=== PATIENT | male | born 1960 | race Caucasian/White ===

== ENCOUNTER → 2020-12-25 14:44 | Outpatient (BNVA) | payer MEDICAID, SELFPAY | PROVIDERS: PCP Family Medicine; Referring Provider Family Medicine; Visit Provider Orthopaedic Surgery | DX: M85.88 Other specified disorders of bone density and structure, other site (principal); M54.9 Dorsalgia, unspecified | CPT/HCPCS: 72110 ==

== ENCOUNTER → 2021-05-01 10:00 | Outpatient (BNVA) | payer MEDICAID, SELFPAY | PROVIDERS: PCP Family Medicine; Visit Provider Orthopaedic Surgery | DX: Z01.818 Encounter for other preprocedural examination (principal); Z20.822 Contact with and (suspected) exposure to COVID-19 | CPT/HCPCS: 87635 ==

== ENCOUNTER 2021-05-06 12:38 | Inpatient (IN) | payer MEDICAID, SELFPAY ==
[2021-05-03 11:07] VITALS: BMI 24.8
--- NOTE | 2021-05-03 11:54 | ANES.PREANE2 ---
Pre-Anesthetic Assessment Pre-Anesthetic Assessment: Height/Weight: Height 1.78 m Weight 78.471 kg Preop Diagnosis: back pain Proposed Procedure: Operation Date: 05/06/21 08:30 Proposed Procedures p Posterior Lumbar Interbody Fusion L4/5 L5/S1 hardware remvoal L2-L4 [id number] M48.062(Not Applicable) - Patrick Sims, DO Familial anesthetic complications: none Social: Social History: Tobacco and No alcohol Exam: Pre-Anes Outpt Exam: alert, oriented x 3, clear to auscultation bilaterally and regular rate & rhythm Airway: Cervical ROM: WNL MP: 3 Dentition: False CV/HEM: CV/HEM: HTN Hepatic: Comments: blood clot in liver over a year ago, got jaundiced, now back gto normal, no blood thinnre GI: GI: GERD and Hiatus hernia Anesthetic Plan: ASA status: 2 Risk of > 500 ml blood loss (7ml/kg in children): No PFSH Anesthesia PFSH: Social History (Updated 12/25/20 @ 15:10 by Vicky Richard LPN) Smoking and tobacco status: current every day smoker Data Anesthesia Cardiac Studies: No Data to Display
[2021-05-03 12:51] LABS: Basophils # 0.1 10^3/uL (0.0-0.1); Basophils % 0.7 %; Eosinophils # 0.2 10^3/uL (0.0-0.8); Hematocrit 49.2 % (42.0-52.0); Hemoglobin 15.7 g/dL (11.7-16.6); Lymphocytes # 2.4 10^3/uL (0.8-4.8); Lymphocytes % 24.3 %; Mean Corpuscular HGB Conc 31.9 g/dL (30.0-36.0); Mean Corpuscular Volume 94.1 fl (80-94); Mean Platelet Volume 11.5 fL (7.4-10.4); Monocytes # 0.9 10^3/uL (0.2-0.9); Monocytes % 9.3 %; Neutrophils # 6.27 10^3/uL (1.8-7.7); Neutrophils % 63.3 %; Nucleated Red Blood Cells % 0 %; Platelet Count 208 10^3/cmm (130-400); Red Blood Count 5.23 10^6/uL (4.1-5.3); Red Cell Distribution Width 14.2 % (12.1-15.1); White Blood Count 9.9 10^3/uL (4.0-10.0)
[2021-05-06] VITALS (20 sets, daily range): BP systolic 98–141; BP diastolic 60–79; PULSE 80–117; RESP 16–37; TEMP 36.2–36.9; O2SAT 83–99
--- NOTE | 2021-05-06 | XR_ITS ---
WS: [id number] Lumbar spine, C-arm fluoroscopy, 05/06/2021 Clinical Data: [facility] Comparison: Lumbar spine, 12/25/2020. Findings: Dr. Sims has placed bilateral pedicle screws. The pedicle screws extend from L2 through S1. There is an artificial disc at L4-L5 and L5-S1. There is an anterior screw at L3. XR/XR lumbar spine 1V port 15721 Impression: Posterior and anterior lumbar fusion.
--- NOTE | 2021-05-06 | SCC_ITS ---
Procedure Done: 1. L4/5 Interbody fusion with posterolateral fusion 2. L5/S1 interbody fusion with posterolateral fusion 3. Instrumentation L2-S1 4. Cage at L4/5 5. Cage at L5/S1 6. Laminectomy L4 7. Laminectomy L5 8. use of autograft from same incision 9. allograft 10. Bone marrow aspirate from left iliac crest 11. use of computer navigation/ sterotactic for spine 12. Removal of hardware from spine 8 seconds of fluoroscopic guidance, for a cumulative dose of 28.2 mGy, was provided to Dr. Sims by the radiology department. C-arm images of the lumbar spine were saved for the patient's permanent record. [facility]
--- NOTE | 2021-05-06 07:50 | P.ANESUD_ITS ---
Pre-Anesthetic Update Pre-Anesthetic Assessment: Date of Surgery/Procedure: 05/06/21 Preop Sailaja gnosis: Lumbar stenosis with neurogenic claudication Proposed Procedure: Operation Date: 05/06/21 08:30 Proposed Procedures p Posterior Lumbar Interbody Fusion L4/5 L5/S1 hardware remvoal L2-L4 85482 13719 [id number] [id number] M48.062(Not Applicable) - Patrick Sims, DO Any changes to Pre-Anesthetic Assessment?: No Last Intake: Intake Last Liquid Date 05/05/21 Last Liquid Time 22:00 Last Solid Date 05/05/21 Last Solid Time 18:30 Vitals: Temperature 97.2 F L 05/06/21 07:20 Temperature Source Temporal Artery S can 05/06/21 07:20 Pulse Rate 80 05/06/21 07:20 Pulse Rhythm 05/06/21 07:28 Pulse Strength 3+ Normal 05/06/21 07:28 Respiratory Rate 18 05/06/21 07:20 Blood Pressure 141/79 05/06/21 07:20 Blood Pressure Cynthia n 99 05/06/21 07:20 Pulse Oximetry 97 05/06/21 07:20 Oxygen Delivery Me thod 05/06/21 07:28 Exam: Pre-Anes Outpt Exam: alert, oriented x 3, clear to auscultation bilaterally and regular rate & rhythm Other Pertinent Information: Other Pertinent Information: A.line Cardiac Studies: No Data to Display
[2021-05-06] MEDS: sodium chloride 0.9% 1,000 ML 30 ML IV (07:51)
--- NOTE | 2021-05-06 08:21 | PM.HP ---
Providers/Chief Complaint Chief Complaint: PLIF History of Present Illness Epifanio Rodriguez is a 60 year old male back pain that started after a door hit him. Chief Complaint: back pain Onset: 10/25/20 Duration: 2 months Characteristics: ache, burning, sharp, numbness down the right leg Severity: 01/26 Location: low back worse than leg pain Radiating symptoms: right hip , later leg and foot Aggravating factors: standing and walking Alleviating factors: repositioning with minimal relief Neuro deficits: denies incontinence of bowel/bladder, saddle anesthesia. Prior tx: Injection by Dr. Infante with no relief, lumbar fusion in the Review of Systems Narrative: General ROS: negative for weight changes, fever ENT ROS: negative for nasal congestion, drainage or bleeding, sore throat, dysphagia or ear pain Eyes: PERRL Hematological and Lymphatic ROS: negative for swollen glands or abnormal bleeding Endocrine ROS: negative for polyuria/polydpsia or new changes in weight Respiratory ROS: negative for cough, shortness of breath, or wheezing Cardiovascular ROS: negative for chest pain or dyspnea on exertion Gastrointestinal ROS: negative for reflux, abdominal pain, change in bowel habits, or black or bloody stools Musculoskeletal ROS: negative for back pain, neck pain, or joint pain or swelling except for current problem Neurological ROS: negative for TIA or stoke symptoms Skin: no rashes Medications/Allergies Home Medications Medication Instructions Recorded Confirmed Last Taken Type esomeprazole magnesium 40 mg 40 mg PO DAILY 12/25/20 05/06/21 05/05/21 History capsule,delayed release alfuzosin [Uroxatral] 10 mg PO DAILY 05/03/21 05/06/21 05/05/21 History amlodipine 10 mg PO DAILY 05/03/21 05/06/21 05/01/21 History famotidine 20 mg PO DAILY 05/03/21 05/06/21 05/05/21 History hydrocodone-acetaminophen 1 tab PO Q6H PRN 05/03/21 05/06/21 05/05/21 History lisinopril 20 mg PO DAILY 05/03/21 05/06/21 04/22/21 History sucralfate [Carafate] 05/03/21 05/05/21 History tamsulosin [Flomax] 0.4 mg PO DAILY 05/03/21 05/06/21 05/05/21 History trazodone 25 mg PO DAILY 05/03/21 05/06/21 05/05/21 History Allergies Allergy/AdvReac Type Severity Reaction Status Date / Time steriod Allergy Severe ALGY-Anaphy Uncoded 05/03/21 10:59 laxis PFSH Acute PFSH: Social History (Updated 12/25/20 @ 15:10 by Vicky Richard LPN) Smoking and tobacco status: current every day smoker Vitals/I&O/Wt Last Vital Signs Temp 97.2 F L 05/06/21 07:20 Pulse 80 05/06/21 07:20 Resp 18 05/06/21 07:20 BP 141/79 05/06/21 07:20 Pulse Ox 97 05/06/21 07:20 Physical Exam Narrative: EXAM NARRATIVE: CONSTITUTIONAL: The patient is a normal appearing [] in no apparent distress. GENERAL: Patient in no acute distress. CARDIAC: Regular rate and rhythm. CHEST: Normal inspiratory effort, normal respiratory rate. ABDOMEN: Soft and nontender. SKIN: Clear, warm and intact. NEURO?PSYCH: The patient is alert and oriented to person, place and time. Sensorv /SILT Motor StrengthShoulder abduction C5 5/5Wrist extension C6 5/5Elbow extension C7 5/5Hand Office Helper Clerical C8 5/5Finger abduction T15/5 Radial/ Ulnar/ Median n intact LowerSensory (SILT)Motor StrengthHin flexion L2/3Ant/inner thigh 5/5Hip adduction L2/3 5/5Knee extension L4 Lat thigh, 5/5Toe dorsiflexion L5 5/5Ankle dorsiflexion L5/ X55Hqgdzxz flexion S1 5/5 DTRBleeps 2+Triceps 2+Brachioradialis 2+Patellar 2+Achilles 2+ MUSCULOSKELETAL: [] UPPEREXTREMITIES: The patient had full active ROM in fingers, wrist, elbow, and shoulder. The patient demonstrated ability to fully flex/extend/abduct/adduct fingers, make ok sign, cross 2nd/3rd digits, extend 1st digit fully.. Radial pulse 2+, CR<2 seconds. LOWER EXTREMITIES: Pt has full, active ROM of toes, ankle, knee, and hip. Dorsalis pedis/posterior tibialis pulses 2+, CR<2 seconds. SPINE: Skin warm, dry, intact. Data : 05/03/21 12:16 A&P Assessment and plan (1) Lumbar stenosis with neurogenic claudication: Revision L2-S1 PSF with decompression Status: Acute Attestations Medical Necessity Statement*: failed conservative tx Coding Level of Care Code Acute Airworthiness Inspector for Chg Fwd Diagnoses Lumbar stenosis with neurogenic claudication M48.062
--- NOTE | 2021-05-06 08:23 | W.PM.OPSUD ---
Surgery/Procedure H&P Update DATE OF PROCEDURE: May 06, 2021 DATE H&P PERFORMED: 05/06/21 PREOP DIAGNOSIS: Lumbar stenosis with neurogenic claudication PLANNED PROCEDURE: Operation Date: 05/06/21 08:30 Proposed Procedures p Posterior Lumbar Interbody Fusion L4/5 L5/S1 hardware remvoal L2-L4 11006 72315 [id number] M48.062(Not Applicable) - Patrick Sims DO
[2021-05-06] MEDS: heparin, porcine 1,000 unit/mL INJ 10 mL 10000 UNIT XX (09:44)
[2021-05-06] MEDS: vancomycin 1,000 MG SDV 1000 MG XX (09:47)
--- NOTE | 2021-05-06 09:48 | SUR.OPER ---
0937 family updated of surgical status. HD
--- NOTE | 2021-05-06 10:43 | SUR.OPER ---
1043 family updated of surgical status
--- NOTE | 2021-05-06 12:47 | PM.OP ---
Operative Report Date of procedure: May 06, 2021 Pre-op Diagnosis: Lumbar stenosis with neurogenic claudication Post-op diagnosis: same Procedure Done: 1. L4/5 Interbody fusion with posterolateral fusion 2. L5/S1 interbody fusion with posterolateral fusion 3. Instrumentation L2-S1 4. Cage at L4/5 5. Cage at L5/S1 6. Laminectomy L4 7. Laminectomy L5 8. use of autograft from same incision 9. allograft 10. Bone marrow aspirate from left iliac crest 11. use of computer navigation/ sterotactic for spine 12. Removal of hardware from spine Surgeon: Patrick Sims Community Marketing Coordinator: Berry Dominguez Community Marketing Coordinator: The access services assistant, Berry Dominguez, PAC was needed for his expertise under the microscope. He was important and necessary throughout the procedure to complete in a safe and timely manner. He assisted with patient positioning prepping and draping tissue retraction suctioning of the operative field protection of the dural sac and tissue closure Anesthesia: General Estimated blood loss (mL): 200 Condition: stable Disposition: PACU Procedure: 1. L4/5 Interbody fusion with posterolateral fusion 2. L5/S1 interbody fusion with posterolateral fusion 3. Instrumentation L2-S1 4. Cage at L4/5 5. Cage at L5/S1 6. Laminectomy L4 7. Laminectomy L5 8. use of autograft from same incision 9. allograft 10. Bone marrow aspirate from left iliac crest 11. use of computer navigation/ sterotactic for spine 12. Removal of hardware from spine patient is brought to the operative suite. After undergoing anesthesia, the patient had neuro monitoring attached. Patient was then placed in the prone position on the Duke table. All areas of impingement were well-padded. Patient was then prepped and draped in the normal sterile fashion. Skin incision was then made L2 to S1e. Subperiosteal dissection was made out to the transverse processes of L2 and S1. Once the exposure was complete attention was then brought to identifying the hardware that was previously in from L2-L4. The end caps removed from the screws these were screws were placed back in the 90s. The knots were removed and the rods were removed and then the reverse thread extraction baker test was used to remove the pedicle screws. The L2-L3 and L4 screws were then replaced with new Karen screws. This was done bilaterally. Once the exposure was completed and screws were placed from L2-L4 attention was then brought to the L4-5 and L5-S1 level. Where new screws needed to be placed. Once exposure was complete then attention was brought to placing the [employer] bone marrow aspirate kit was used to aspirate bone marrow from the left iliac crest.. This was done by using the sharp probe to open up the bone. Aspiration was performed and then the blunt probe was then used to dissect down to through the bone tunnel. An aspirating well drawn back a millimeter approximately 20 cc of bone marrow aspirate was used. Admixed with the allograft and autograft bone that will be used. Next attention was placed on placing the fiducial for the computer navigation. 2 pins were placed into the left iliac wing. The fiducials attached. The information was then loaded in the computer serum was then spun and linked to the fiducial and information was passed into the computer in order to facilitate doing the computer navigation for the pedicle screws. The technique for placing the pedicle screws was to use a drill followed by the gearshift probe that was attached to the computer navigation. Followed by the ball probe to feel the superior inferior medial lateral siddiqui of the pedicles. Then placement of the screws using the computer navigation. Was done at each pedicle. Screws were placed at L5 bilaterally and S1. All the screws were stimmed and felt to be in good position. Next attention was brought to performing the laminectomy ofL4. This was done using the high-speed bur Kerrisons and curettes. Once the lamina was removed and then attention was brought to performing a partial facetectomy on the contralateral side. This was done again using the high-speed bur curettes and Kerrisons. The ligamentum flavum was taken down bilaterally from L4 to L5. Attention was then brought to the facet on the ipsilateral side. The facet was taken down. The L5 nerve was decompressed as it passed around the L5 pedicle. The laminectomy was done for purposes of decompressing the nerve as well as placement of the cage. The L4 nerve was identified as it traversed through the L4/5 foramen. The thecal sac was identified and retracted. The L4/5 disc base was identified. Using a knife the disc base was opened. And then sequential bernabe were placed. The first shaver was a 6 and the last shaver was a 11. Using a pituitary and down going curette the endplates were scraped and disc material was removed from the space. Once adequate decompression of the disc base was felt to be had. Osteoamp sponge was packed into the anterior aspect of the disc base. Then a size 11 cage from Karen was placed after packing osteoamp into the cage. While placing the cage the thecal sac and L5 nerve was protected. C arm was used to ensure that the cages placed in the appropriate position. Next attention was brought to performing the laminectomy ofL5. This was done using the high-speed bur Kerrisons and curettes. Once the lamina was removed and then attention was brought to performing a partial facetectomy on the contralateral side. This was done again using the high-speed bur curettes and Kerrisons. The ligamentum flavum was taken down bilaterally from L5 to S1. Attention was then brought to the facet on the ipsilateral side. The facet was taken down. The S1 nerve was decompressed as it passed around the S1 pedicle. The laminectomy was done for purposes of decompressing the nerve as well as placement of the cage. The L5 nerve was identified as it traversed through the L5/S1 foramen. The thecal sac was identified and retracted. The L5/S1 disc base was identified. Using a knife the disc base was opened. And then sequential bernabe were placed. The first shaver was a 6 and the last shaver was a 9. Using a pituitary and down going curette the endplates were scraped and disc material was removed from the space. Once adequate decompression of the disc base was felt to be had. Osteoamp sponge was packed into the anterior aspect of the disc base. Then a size 9 cage from Karen was placed after packing osteoamp into the cage. While placing the cage the thecal sac and S1 nerve was protected. C arm was used to ensure that the cages placed in the appropriate position. Attention was then brought to attaching the rods to the screws placed in the L2 - S1 bilaterally. Caps were torqued into position. Locking the construct in place. Wound was copiously irrigated and then attention was brought to decorticating the facets and transverse processes laterally. Bone that was taken down from the lamina was used along with osteoamp fibers and sponges were packed into the lateral gutters along the facet joints. This was done bilaterally. Wound was then closed in a layered fashion starting with the thoracolumbar fascia. 0-vicryl was used the sub cutaneous tissue was closed with 2-0 vicryl and skin with 4-0 monocryl. Glue was then used to seal the skin and a steril dressing was applied. Patient was then placed in the supine position. The endotracheal tube was removed and patient was transferred to the PACU in stable condition.
--- NOTE | 2021-05-06 12:54 | PC.NURSE ---
IV hydromorphone pulled by ISAIAS Roblero and administered a total of 1mg by GERARDO Villagomez.
[2021-05-06] MEDS: HYDROmorphone 1 mg/mL INJ 1 mL 0.5 MG IVP (13:04)
--- NOTE | 2021-05-06 13:09 | P.PCN_ITS ---
PACU note PACU note: VSS, Good respiratory effort, report to PUBLIC POLICY MANAGER Post-Anesthesia Exam: awake
--- NOTE | 2021-05-06 13:09 | PM.PACU ---
PACU note PACU note: VSS, Good respiratory effort, report to HAND ALTERATIONS SEAMSTRESS Post-Anesthesia Exam: awake
--- NOTE | 2021-05-06 13:21 | PC.NURSE ---
ART line discontinued. Line intact upon removal. Pressure applied for 15 minutes and pressure dressing applied. Bleeding controlled.
[2021-05-06] MEDS: ketorolac 30 mg/mL INJ IVP ×2 (14:14→21:47)
--- NOTE | 2021-05-06 14:49 | P.CONIM_ITS ---
Providers/Reason For Consult Consulting Physician/Specialty*: MD Nitish/Internal Medicine Reason for Consult*: Medical co-morbidities Attending Physician: Patrick Sims DO History of Present Illness History of Present Illness Epifanio Rodriguez is a 60 year old male with past medical history of hypertension, diverticulitis, BPH for which he was recently on antibiotics admitted under Dr. Sims for L4-5 interbody fusion with posterior lateral fusion. Patient underwent procedure today which he tolerated well with expected blood loss of around 200 cc. Medicine was consulted for comanagement of medical problems. Examination patient is comfortably in bed. States pain is 8 out of 10. Denies any nausea vomiting, headache, dizziness. States he checks his blood pressure daily at home and usually numbers are ranging from 110 systolic to 150 systolics. Lately he has not been taking his antihypertensives as blood pressures have been well maintained in 130s. Review of Systems General: Reports: 10 or more systems reviewed and unremarkable except in HPI and below Const: Denies: fever(s), chills, body aches, change in appetite, change in weight, malaise, night sweats, diaphoresis, change in sleep pattern, daytime sleepiness or snoring Eyes: Denies: change in vision, blurry vision, photophobia, eye discomfort or eye discharge ENMT: Denies: throat pain, enlarged tonsils, hoarseness, mouth pain, oral sores, dry mouth, tinnitus, nasal congestion or post nasal drip Card: Denies: chest pain, palpitations, irregular heart rhythm, edema, swelling of feet/ankles, lightheadedness, syncope, pre-syncope, dyspnea on exertion, orthopnea, leg pain with exertion or acrocyanosis Resp: Denies: dyspnea, productive cough, non-productive cough, wheezing, str idor, pain on inspiration, change in phlegm color, hemoptysis or chest congestion GI: Denies: abdominal pain, nausea, vomiting, hematemesis, coffee ground emesis, dysphagia, heartburn, diarrhea, constipation, bloating, GI cramping, change in bowel habits, pain on defecation, hematochezia or melena : Denies: flank pain, difficulty urinating, dysuria, urinary frequency, urinary urgency, urinary hesitancy, urinary dribbling, difficulty starting urination, change in urine stream, nocturia or hematuria Musc: Denies: neck pain, back pain, extremity pain, joint pain, joint swelling, joint redness, joint stiffness or limited range of motion Neuro: Denies: headache(s), numbness in extremities, weakness in extremities, sensory changes, lack of coordination, difficulty walking, frequent falls, dizziness, vertigo, confusion, Slurred speech present, difficulty communicating thoughts or seizure-like activity Psych: Denies: anxiety, depression, mood swings, panic attacks, hopelessness or irritability Endo: Denies: polyuria, polydipsia, tired all the time, cold intolerance, excessive sweating, flushing or heat intolerance Stevan/Lymph: Denies: easy bruising or easy bleeding All/Imm: Denies: tongue swelling, facial swelling or acute wheezing Meds/Allergies Home Medications and Allergies Home Medications Medication Instructions Recorded Confirmed Last Taken Type esomeprazole magnesium 40 mg 40 mg PO DAILY 12/25/20 05/06/21 05/05/21 History capsule,delayed release alfuzosin [Uroxatral] 10 mg PO DAILY 05/03/21 05/06/21 05/05/21 History amlodipine 10 mg PO DAILY 05/03/21 05/06/21 05/01/21 History famotidine 20 mg PO DAILY 05/03/21 05/06/21 05/05/21 History hydrocodone-acetaminophen 1 tab PO Q6H PRN 05/03/21 05/06/21 05/05/21 History lisinopril 20 mg PO DAILY 05/03/21 05/06/21 04/22/21 History sucralfate [Carafate] 05/03/21 05/05/21 History tamsulosin [Flomax] 0.4 mg PO DAILY 05/03/21 05/06/21 05/05/21 History trazodone 25 mg PO DAILY 05/03/21 05/06/21 05/05/21 History Allergies Allergy/AdvReac Type Severity Reaction Status Date / Time steriod Allergy Severe ALGY-Anaphy Uncoded 05/03/21 10:59 laxis Current Medications Current Medications Generic Name Dose Route Start Last Admin Trade Name Freq PRN Reason Stop Dose Admin Ketorolac Tromethamine 30 mg 05/06/21 12:38 05/06/21 14:14 Ketorolac 30 Mg/Ml Inj IVP 30 mg Q6H PRN Administration BREAKTHROUGH PAIN PFSH Acute PFSH: Medical History (Updated 05/06/21 @ 15:10 by Nitin Talbert MD) Cigarette smoker Colostomy in place 07/08 Diverticulitis Hernia Hypertension Surgical History (Updated 05/06/21 @ 15:10 by Nitin Talbert MD) H/O spinal fusion 90s Family History (Updated 05/06/21 @ 15:10 by Nitin Talbert MD) Denies family history of Cancer Social History (Updated 05/06/21 @ 15:11 by Nitin Talbert MD) Smoking and tobacco status: current every day smoker cigarettes Packs smoked per day: 2 Alcohol intake: current Alcohol intake frequency: 0-2 Drinks per Day Alcohol type: hard liquor Adopted: No Caregiver/support person: Yes Household members: family Housing: House Vitals/I&O/Wt Last Vital Signs Temp 98.4 F 05/06/21 13:20 Pulse 102 H 05/06/21 13:20 Resp 20 H 05/06/21 13:20 BP 108/69 05/06/21 13:20 Pulse Ox 98 05/06/21 13:20 05/05/21 05/06/21 05/06/21 22:59 06:59 14:59 Intake Total 2260 / 2260 Output Total 1000 / 1000 Balance 1260 / 1260 Physical Exam Narrative: EXAM NARRATIVE: EXAM NARRATIVE: General: No acute distress, AO x3, on room air HEENT: PERRLA, pupils bilaterally equal and reactive Chest: No vesicular breath sounds bilaterally, no added sounds, good equal air entry bilaterally CVS: S1-S2 regular, no murmurs, no tachycardia, no gallops, no rubs Abdomen: Soft, nontender, no organomegaly, bowel sounds present, morbidly obese Neuro: No focal deficits, no facial deformity, AO x3, power 5/5 in all limbs Urinary Catheter Management^: Carlos: Cath Placed During This Visit: yes Urinary Catheter Date of Insertion: 05/06/21 Urinary Catheter Time of Insertion: 08:50 A&P Assessment and plan (1) Hypertension: Status: Acute (2) Lumbar stenosis with neurogenic claudication: Status: Acute (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 For now hold off on antihypertensives. States he does not take blood pressure medication daily at home. We will reintroduce low-dose amlodipine if needed. Chronic smoker: Nicotine patch. Discussed in detail for need for smoking cessation as soon as possible. Patient states he will think about it. Daily alcohol use: CIWA protocol as needed. Postoperative care: Perioperative antibiotics and physical therapy, anticoagulation as per primary team. Continue other chronic medications. Check iron panel, vitamin B12, folate, lipid panel, TSH, HbA1c. Full code. Cardiac diet. Anticoagulation as per surgical team. Protonix for PUD prophylaxis. Thank you for involving us in care of Mr. Rodriguez. Please call if any question. Consult Attestations Medical Necessity Statement: As per primary team. Time Spent in Patient Care: Greater than 35 minutes (>than 50% of time spent in counselling and/or direct pt care on unit) . 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
[2021-05-06] MEDS: enoxaparin 40 mg/0.4 mL Syringe SUBCUT (15:15)
[2021-05-06] MEDS: lactated ringers 1,000 ML 90 ML IV (15:22)
--- NOTE | 2021-05-06 15:41 | ANE.PACU2 ---
Inpatient post-anesthesia follow up: Airway intact: Yes Vital signs: Temperature 98.4 F Pulse Rate 102 Respiratory Rate 20 Blood Pressure 108/69 Pulse Oximetry 98 Oxygen Delivery Me thod Room Air Oxygen Flow Rate Fraction of Inspir ed Oxygen Hydration adequate: Yes Nausea and vomiting: No Pain level: 3 Mental status: Baseline
[2021-05-06] MEDS: morphine 4 mg/mL SDV 1 mL 2 MG IVP (15:43)
[2021-05-06 16:02] LABS: Basophils # 0.1 10^3/uL (0.0-0.1); Basophils % 0.4 %; Eosinophils % 0.3 %; Hematocrit 35.2 % (42.0-52.0); Hemoglobin 11.4 g/dL (11.7-16.6); Lymphocytes # 1.4 10^3/uL (0.8-4.8); Lymphocytes % 11.7 %; Mean Corpuscular HGB Conc 32.4 g/dL (30.0-36.0); Mean Corpuscular Hemoglobin 29.8 pg (28.0-34.0); Mean Corpuscular Volume 92.1 fl (80-94); Mean Platelet Volume 10.7 fL (7.4-10.4); Monocytes # 0.7 10^3/uL (0.2-0.9); Monocytes % 5.8 %; Neutrophils # 9.78 10^3/uL (1.8-7.7); Neutrophils % 81.5 %; Nucleated Red Blood Cells % 0 %; Platelet Count 186 10^3/cmm (130-400); Red Blood Count 3.82 10^6/uL (4.1-5.3); Red Cell Distribution Width 14.4 % (12.1-15.1)
[2021-05-06 16:53] LABS: Thyroid Stimulating Hormone 1.36 uIU/mL (0.27-4.20); Vitamin B12 265 pg/mL (232-1245)
[2021-05-06 16:58] LABS: Alanine Aminotransferase 12 U/L (0-41); Albumin Level 3.4 g/dL (3.5-5.2); Alkaline Phosphatase 96 IU/L (40-130); Anion Gap 12.9 (5-19); Aspartate Amino Transferase 17 U/L (0-40); Blood Urea Nitrogen 10 mg/dL (8-23); Calcium 8.5 mg/dL (8.5-10.5); Carbon Dioxide 20 mmol/L (22-29); Chloride 111 mmol/L (98-107); Globulin 2.6 g/dL (1.3-4.6); Glucose 107 mg/dL (65-115); Iron 62 ug/dL (59-158); NT Pro B Type Natriuretic Pept 93 pg/mL (0-125); Osmolality Calculated 290 mOsm/kg (285-295); Percent Saturation 26.1 % (20-50); Potassium 3.9 mmol/L (3.5-5.1); Sodium 140 mmol/L (136-145); Total Bilirubin 0.3 mg/dL (0.15-1.2); Total Iron Binding Capacity 237 mcg/dl; Unsaturated Iron Binding 175 ug/dL (112-347)
[2021-05-06 17:40] LABS: Folate Level 9.1 ng/mL (4.5-32.2)
[2021-05-06] MEDS: docusate sodium 100 mg Capsule PO (18:09)
[2021-05-06] MEDS: HYDROcodone-acetaminophen 10-325 mg Tablet 1 TAB PO (18:10)
[2021-05-07] VITALS (7 sets, daily range): BP systolic 122–129; BP diastolic 74–82; PULSE 63–75; RESP 17–20; TEMP 36.6–37.1; O2SAT 96–99
[2021-05-07] MEDS: HYDROcodone-acetaminophen 10-325 mg Tablet 1 TAB PO ×2 (00:49→08:45)
[2021-05-07] MEDS: morphine 4 mg/mL SDV 1 mL 2 MG IVP ×2 (01:06→05:30)
[2021-05-07 03:02] LABS: Basophils # 0.1 10^3/uL (0.0-0.1); Basophils % 0.6 %; Eosinophils # 0.1 10^3/uL (0.0-0.8); Eosinophils % 1.1 %; Hematocrit 35.3 % (42.0-52.0); Hemoglobin 11.7 g/dL (11.7-16.6); Lymphocytes # 1.4 10^3/uL (0.8-4.8); Lymphocytes % 17.1 %; Mean Corpuscular HGB Conc 33.1 g/dL (30.0-36.0); Mean Corpuscular Hemoglobin 30.7 pg (28.0-34.0); Mean Corpuscular Volume 92.7 fl (80-94); Mean Platelet Volume 11.2 fL (7.4-10.4); Monocytes # 0.5 10^3/uL (0.2-0.9); Monocytes % 6.7 %; Neutrophils # 5.86 10^3/uL (1.8-7.7); Neutrophils % 74.1 %; Nucleated Red Blood Cells % 0 %; Platelet Count 205 10^3/cmm (130-400); Red Blood Count 3.81 10^6/uL (4.1-5.3); Red Cell Distribution Width 14.6 % (12.1-15.1); White Blood Count 7.9 10^3/uL (4.0-10.0)
[2021-05-07 03:26] LABS: Alanine Aminotransferase 11 U/L (0-41); Albumin Level 3.3 g/dL (3.5-5.2); Alkaline Phosphatase 102 IU/L (40-130); Anion Gap 12.9 (5-19); Aspartate Amino Transferase 24 U/L (0-40); Blood Urea Nitrogen 13 mg/dL (8-23); Calcium 8.6 mg/dL (8.5-10.5); Carbon Dioxide 24 mmol/L (22-29); Chloride 107 mmol/L (98-107); Globulin 2.6 g/dL (1.3-4.6); Glomerular Filtration Rate 98.3 mL/min (90-130); Glucose 156 mg/dL (65-115); Osmolality Calculated 293 mOsm/kg (285-295); Potassium 3.9 mmol/L (3.5-5.1); Sodium 140 mmol/L (136-145); Total Bilirubin 0.3 mg/dL (0.15-1.2); Total Protein 5.9 g/dL (6.6-8.7)
[2021-05-07 03:34] LABS: Estmated Average Glucose 97
[2021-05-07] MEDS: lactated ringers 1,000 ML 90 ML IV (03:37)
[2021-05-07 04:02] LABS: Chol HDL Ratio 4.52 mg/dL (1.0-5.00); Cholesterol 149 mg/dL (0-200); HDL Cholesterol 33 mg/dL (60-100); LDL Cholesterol Calculated 98 mg/dL (50-129); Triglycerides 92 mg/dL (0-150); VLDL Cholestrol Calculation 18 mg/dL (0-30)
[2021-05-07] MEDS: ketorolac 30 mg/mL INJ IVP (04:58)
[2021-05-07] MEDS: alum-mag-hydroxide-sime 30 mL UDC PO (05:34)
--- NOTE | 2021-05-07 06:54 | PM.PN ---
Documented by User: EUGENIA Olsen 05/07/21 06:59 Subjective Subjective: Interval history: POD 1 Patient is up in the chair this morning complaining of some mild back pain with his leg pain much improved. He denies any fevers chills chest pain or headaches. He is wanting to go home later today. Vitals/I&O/Wt Last Vital Signs Temp 97.9 F 05/07/21 04:00 Pulse 75 05/07/21 04:00 Resp 18 05/07/21 05:30 BP 124/81 05/07/21 04:00 Pulse Ox 96 05/07/21 04:00 05/06/21 05/06/21 05/07/21 14:59 22:59 06:59 Intake Total 2260 / 2260 60 / 2320 1240 / 3560 Output Total 1000 / 1000 355 / 1355 740 / 2095 Balance 1260 / 1260 -295 / 965 500 / 1465 Physical Exam Narrative: EXAM NARRATIVE: His incision is clean and dry. Hemovac is intact and draining. He is wiggling all digits and they are warm to the touch can dorsiflex and plantarflex both ankles flex and extend both knees. Normal station light touch down both lower extremities. Urinary Catheter Management^: Carlos: Cath Placed During This Visit: yes Urinary Catheter Date of Insertion: 05/06/21 Urinary Catheter Time of Insertion: 08:50 Data : 05/07/21 02:19 05/07/21 02:19 A&P Assessment and plan (1) Status post lumbar spinal fusion: We will discontinue the Hemovac drain. Have physical therapy continue to mobilize. We will transfer him home have him follow-up in the office in 2 weeks. He will call if he is having problems. Discussed continue a walking program no bending lifting or twisting. Status: Acute Attestations Medical Necessity Statement*: defer to medical team Coding Level of Care Code Acute Philatelic Consultant for Jazmine Flannery Diagnoses Status post lumbar spinal fusion Z98.1 Documented by User: Patrick Sims DO 05/07/21 07:05 Physical Exam Urinary Catheter Management^: Carlos: Cath Placed During This Visit: no Data : 05/07/21 02:19 05/07/21 02:19 Coding Level of Care Code Acute Philatelic Consultant for Chg Fwd Diagnoses Status post lumbar spinal fusion Z98.1
--- NOTE | 2021-05-07 07:05 | P.DS_ITS ---
Discharge Providers Date of Admission: 05/06/21 12:39 Date of Discharge: May 07, 2021 Attending Provider at Admission: Patrick Sims DO Attending Provider at Discharge: Patrick Sims DO Diagnoses at Discharge Discharge Diagnosis (1) Status post lumbar spinal fusion: Status: Acute Reason for Visit Reason for Visit: PLIF Hospital Course Hospital Course Patient is admitted to the hospital on 05/06/2021. He had a revision L2-S1 posterior spine surgery. He is discharged on 05/07/2021. Hospital course was uneventful. Physical Exam Urinary Catheter Management^: Carlos: Cath Placed During This Visit: yes Urinary Catheter Date of Insertion: 05/06/21 Urinary Catheter Time of Insertion: 08:50 Discharge Data Data Completed and Pending: Pending at discharge Category Date Time Status XR lumbar spine 1 V port 42522 Routi ne Exams 05/06/21 Taken Labs from last 24 hours 05/07/21 05/07/21 05/07/21 02:19 02:19 02:19 WBC RBC Hgb Hct MCV MCH MCHC RDW Plt Count MPV Neut % (Auto) Lymph % (Auto) [place] % (Auto) Eos % (Auto) Baso % (Auto) Neut # (Auto) Lymph # (Auto) [place] # (Auto) Eos # (Auto) Baso # (Auto) Nucleated RBC % (a uto) Nucleated RBCs # Sodium 140 Potassium 3.9 Chloride 107 Carbon Dioxide 24 Anion Gap 12.9 BUN 13 Creatinine 0.8 GFR Calculation 98.3 Glucose 156 H Estimat Average Gl ucose 97 Hemoglobin A1c 5.0 Calculated Osmolal ity 293 Calcium 8.6 Iron TIBC % Saturation Unsat Iron Binding Total Bilirubin 0.3 AST 24 ALT 11 Alkaline Phosphata se 102 NT-Pro-B Natriuret Pep Total Protein 5.9 L Albumin 3.3 L Globulin 2.6 Triglycerides 92 Cholesterol 149 LDL Cholesterol, C alc 98 Total VLDL Cholest ilan 18 HDL Cholesterol 33 L Cholesterol/HDL Ra mohamud 4.52 Vitamin B12 Folate TSH 05/07/21 05/06/21 05/06/21 02:19 15:47 15:47 WBC 7.9 RBC 3.81 L Hgb 11.7 Hct 35.3 L MCV 92.7 MCH 30.7 MCHC 33.1 RDW 14.6 Plt Count 205 MPV 11.2 H Neut % (Auto) 74.1 Lymph % (Auto) 17.1 [place] % (Auto) 6.7 Eos % (Auto) 1.1 Baso % (Auto) 0.6 Neut # (Auto) 5.86 Lymph # (Auto) 1.4 [place] # (Auto) 0.5 Eos # (Auto) 0.1 Baso # (Auto) 0.1 Nucleated RBC % (a uto) 0 Nucleated RBCs # 0.0 Sodium Potassium Chloride Carbon Dioxide Anion Gap BUN Creatinine GFR Calculation Glucose Estimat Average Gl ucose Hemoglobin A1c Calculated Osmolal ity Calcium Iron TIBC % Saturation Unsat Iron Binding Total Bilirubin AST ALT Alkaline Phosphata se NT-Pro-B Natriuret Pep Total Protein Albumin Globulin Triglycerides Cholesterol LDL Cholesterol, C alc Total VLDL Cholest ilan HDL Cholesterol Cholesterol/HDL Ra mohamud Vitamin B12 265 Folate 9.1 TSH 1.36 05/06/21 05/06/21 15:47 15:47 WBC 12.0 H RBC 3.82 L Hgb 11.4 L Hct 35.2 L MCV 92.1 MCH 29.8 MCHC 32.4 RDW 14.4 Plt Count 186 MPV 10.7 H Neut % (Auto) 81.5 Lymph % (Auto) 11.7 [place] % (Auto) 5.8 Eos % (Auto) 0.3 Baso % (Auto) 0.4 Neut # (Auto) 9.78 H Lymph # (Auto) 1.4 [place] # (Auto) 0.7 Eos # (Auto) 0.0 Baso # (Auto) 0.1 Nucleated RBC % (a uto) 0 Nucleated RBCs # 0.0 Sodium 140 Potassium 3.9 Chloride 111 H Carbon Dioxide 20 L Anion Gap 12.9 BUN 10 Creatinine 0.6 L GFR Calculation 137.0 H Glucose 107 Estimat Average Gl ucose Hemoglobin A1c Calculated Osmolal ity 290 Calcium 8.5 Iron 62 TIBC 237 % Saturation 26.1 Unsat Iron Binding 175 Total Bilirubin 0.3 AST 17 ALT 12 Alkaline Phosphata se 96 NT-Pro-B Natriuret Pep 93 Total Protein 6.0 L Albumin 3.4 L Globulin 2.6 Triglycerides Cholesterol LDL Cholesterol, C alc Total VLDL Cholest ilan HDL Cholesterol Cholesterol/HDL Ra mohamud Vitamin B12 Folate TSH Vitals: Last Vital Signs Temp 97.9 F 05/07/21 04:00 Pulse 75 05/07/21 04:00 Resp 18 05/07/21 05:30 BP 124/81 05/07/21 04:00 Pulse Ox 96 05/07/21 04:00 Discharge Plan Discharge Patient Disposition: Home Condition: Stable Prescriptions: New hydrocodone-acetaminophen 5-325 mg tablet 1 - 2 tab PO .Q4-6H Qty: 40 RF: 0 Continued esomeprazole magnesium [Nexium] 40 mg capsule,delayed release(DR/EC) 40 mg PO DAILY RF: 0 trazodone 50 mg Tablet 25 mg PO DAILY RF: 0 sucralfate [Carafate] 1 gram Tablet RF: 0 lisinopril 20 mg Tablet 20 mg PO DAILY RF: 0 hydrocodone-acetaminophen 10-325 mg Tablet 1 tab PO Q6H PRN (Reason: Pain) RF: 0 famotidine 20 mg Tablet 20 mg PO DAILY RF: 0 tamsulosin [Flomax] 0.4 mg Capsule 0.4 mg PO DAILY RF: 0 amlodipine 10 mg Tablet 10 mg PO DAILY RF: 0 alfuzosin [Uroxatral] 10 mg Tablet Extended Release 24 Hr 10 mg PO DAILY RF: 0 Discharge Orders: Discharge Order (Routine); Ordered 05/07/21 Ordered By: Patrick Sims Discharge Diet: Advance as tolerated Discharge Activity: Limit activity as instructed Patient Instructions: Opioid Safety Activity Restrictions/Additional Instructions: Thank you for [facility] for your care! The following is a list of instructions, from your provider, to follow upon your discharge to ensure you have the optimal recovery from your recent injury orsurgery. Follow-up care is a ayala part of your treatment and safety. Be sure to make and go to all appointments, and call your doctor if you are having problems. If you do not already have a follow-up appointment made, call Dr. Sims office in the next 1-3 days to make follow up appointment for 1 week at [phone]. It is also a good idea to know your test results and keep a list of the medicines you take. Medications will be prescribed for you at your provider's discretion. These medications are to be used as instructed; if they are taken more often that prescribed they will not be refilled early and in most cases will not be refilled at all. > When a refill is needed,you should contact liset houser 2-3 business days before your prescription runs out. Medications will NOT be refilled by director of alumni relations providers after hours! > Many pain medications contain Tylenol (Acetaminophen). Do not consume more than 4,000 mg of Tylenol per day in total with any combination ofmedications. > Pain medications can cause constipation. Please use an over the counter stool softener as directed, while taking pain medications. Consulty our local pharmacist with questions or recommendations on stool softeners. If constipation persists, contact our office or your primary care provider. > While under our care,you are not to receive pain medications or other controlled substances from any other provider unless our office is notified and approves. Any attempts to do so will result in refusal to prescribe any further pain medications and possible dismissal from our practice. ? Keep Dressing on at all times until seen in the office ? ? Walking is essential for the healing process after surgery. We would like you to slowly advance your walking. This should be done on relatively flat clear ground (inside or out) or can be done on a treadmill. Remember this goal does not have to happen all at once, slowly increase your distance and duration. This can be broken into more more than one walk per day as tolerated. Patients who walk as directed after surgery rarely require Physical Therapy. In the unlikely event this issue arises your provider will direct hospital staff to make the appropriate arrangements. ? No lifting over 5 pounds {a gallon of milk) or bending/twisting until further notice. Each of these activities places an unnecessary amount of stress onto the body and can impede the delicate healing process. > Instead of bending at the waist, keep your back straight and bend at the knees. > Instead of twisting your torso, keep your back straight and turn your entire body with your feet. ? You may sleep in any position which makes you comfortable. Many patients find comfort sleeping in a reclining chair. It is not abnormal to have difficulty sleeping for the first several weeks following your surgery. We recommend trying Benadry! or Tylenol PM as directed to help with your sleeping difficulties. Both medications are over the counter and available withoutprescription. ? NO SMOKING!!! Smoking dramatically increases the probability of developing postoperative wound infections. ? Common complaints after lumbar and/or thoracic spine surgery include, but are not limited to: numbness and/or tingling in the legs, pain around the incision and surrounding tissues, muscle spasms, or stiffness of the middle to low back. Contact our office if these symptoms persist or if an acute change occurs. ? No driving for the first 3-5days, and not while taking narcotics [] until seen at your follow-up appointment and cleared. There are no restrictions for riding on short trips, however if you take a longer trip, arrangements should be made to make regular stops to get out of the vehicle and stretch . ? Swelling is an unfortunate event that will take place with any surgery and is the primary source of your postoperative discomfort. While walking and regular approved activities helps control inflammation, there are additional steps you can take to minimizeswelling. > Place ice over the surgical site and surrounding tissue for twenty minutes, followed by applying a low/medium heat (heating pad) for an additional twenty minutes every 1-2 hours as needed for painrelief. > You may use of over the counter anti-inflammatory medications (Ibuprofen, Motrin, Aleve, Advil, etc) as directed on the package label. These types of medicines wm significantly reduce the amount of discomfort you experience after surgery from swelling. It should be noted that if you have and allergy to any of these medications, or a history of ulcers or kidney disease you should consult you primary care provider prior to starting these medications. Discharge Attestations Time Spent in Discharge Care*: less than 30 min Quality Metrics Clinical Quality Measures During this hospital stay, did patient experience: None Coding Level of Care Code Acute Jazmine SWARTZ DC note Diagnoses Status post lumbar spinal fusion Z98.1
[2021-05-07] MEDS: nicotine 21 mg Patch 1 PATCH TRANSDERMA (08:45)
[2021-05-07] MEDS: folic acid 1 mg Tablet PO (08:46)
[2021-05-07] MEDS: thiamine 100 mg Tablet PO (08:46)
[2021-05-07] MEDS: tamsulosin 0.4 mg Capsule PO (08:46)
[2021-05-07] MEDS: multivitamin therapeutic Tablet 1 TAB PO (08:46)
[2021-05-07] MEDS: pantoprazole DR 40 mg Tablet PO (08:46)
[2021-05-07] MEDS: docusate sodium 100 mg Capsule PO (08:46)
--- NOTE | 2021-05-07 11:09 | PC.NURSE ---
patient verbalized understanding of discharge instructions, home medications, and follow up appointments. discussed in depth the negative effects of smoking. patient is resistant to education, and states that he will continue to smoke. hemovac removed and dressing was reinforced.
--- NOTE | 2021-05-07 12:09 | PM.PN ---
Subjective Subjective: Interval history: Postoperative day 1. No acute events overnight. Has remained hemodynamically stable and afebrile. Today seen walking around in the hallway with walker. Vitals/I&O/Wt Last Vital Signs Temp 98.7 F 05/07/21 12:00 Pulse 69 05/07/21 12:00 Resp 17 05/07/21 12:00 BP 129/82 05/07/21 12:00 Pulse Ox 99 05/07/21 12:00 05/06/21 05/07/21 05/07/21 22:59 06:59 14:59 Intake Total 60 / 2320 1240 / 3560 540 / 540 Output Total 355 / 1355 740 / 2095 130 / 130 Balance -295 / 965 500 / 1465 410 / 410 Physical Exam Narrative: EXAM NARRATIVE: EXAM NARRATIVE: General: No acute distress, AO x3, on room air HEENT: PERRLA, pupils bilaterally equal and reactive Chest: No vesicular breath sounds bilaterally, no added sounds, good equal air entry bilaterally CVS: S1-S2 regular, no murmurs, no tachycardia, no gallops, no rubs Abdomen: Soft, nontender, no organomegaly, bowel sounds present, morbidly obese Neuro: No focal deficits, no facial deformity, AO x3, power 5/5 in all limbs Urinary Catheter Management^: Carlos: Cath Placed During This Visit: yes Urinary Catheter Date of Insertion: 05/06/21 Urinary Catheter Time of Insertion: 08:50 Data : 05/07/21 02:19 05/07/21 02:19 A&P Assessment and plan (1) Hypertension: Status: Acute (2) Lumbar stenosis with neurogenic claudication: Status: Acute (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 For now hold off on antihypertensives. States he does not take blood pressure medication daily at home. Blood pressure has remained stable off antihypertensives. We will reintroduce low-dose amlodipine if needed. Chronic smoker: Nicotine patch. Discussed in detail for need for smoking cessation as soon as possible. Patient states he will think about it. Daily alcohol use: CIWA protocol as needed. Postoperative care: Perioperative antibiotics and physical therapy, anticoagulation as per primary team. Continue other chronic medications. Check iron panel, vitamin B12, folate, lipid panel, TSH, HbA1c. Full code. Cardiac diet. Anticoagulation as per surgical team. Protonix for PUD prophylaxis. Patient safe to be discharged from medicine standpoint. To be discharged off antihypertensives as blood pressures have remained stable. Patient is advised to check blood pressure twice daily and maintain a blood pressure diary. Patient advised to take amlodipine 5 mg as needed once daily for systolic blood pressure of more than 140. Thank you for involving us in care of Mr. Rodriguez. Please call if any question. Attestations Medical Necessity Statement*: As per primary team. Time Spent in Patient Care: Greater than 35 minutes (>than 50% of time spent in counselling and/or direct pt care on unit). 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
--- NOTE | 2021-05-07 14:33 | PC.NURSE ---
home prescriptions delivered to patients room, and home delivered patients walker.
--- NOTE | 2021-05-07 14:54 | PC.NURSE ---
I personally wheeled patient out to private vehicle. pt cane found in room after d/c. pt contacted, and I met him at the main entrance with his cane.
== END 2021-05-07 15:00 | disposition home or self-care (01) | DRG 460 ==
LOC: MEDSURG 12:38
PROVIDERS: Anesthesiology; Student in an Organized Health Care Education/Training Program; Admitting Provider Orthopaedic Surgery; Visit Provider Orthopaedic Surgery
PROC: 0SG00AJ Fusion of Lumbar Vertebral Joint with Interbody Fusion Device, Posterior Approach, Anterior Column, Open Approach (ICD-10-PCS; CPT 22612; principal; 2021-05-06 08:30)
DX: M48.062 Spinal stenosis, lumbar region with neurogenic claudication (principal); F17.210 Nicotine dependence, cigarettes, uncomplicated; I10 Essential (primary) hypertension; N40.0 Benign prostatic hyperplasia without lower urinary tract symptoms; Z79.891 Long term (current) use of opiate analgesic
CPT/HCPCS: 36415; 51702; 72020; 76000; 80053; 80061; 82607; 82746; 83036; 83540; 83550; 83880; 84443; 85025; 86850; 86900; 96365; 96372; 97161; 97530; C1713; J0690; J1170; J1644; J1650; J1885; J2270; J2370; J2405; J2704; J3010; J3370; J3411; J3490; J7030; P9041

== ENCOUNTER → 2021-06-20 13:58 | Outpatient (BNVA) | payer MEDICAID, SELFPAY | PROVIDERS: Visit Provider Physician Assistant | DX: Z98.1 Arthrodesis status (principal) | CPT/HCPCS: 72100 ==

== ENCOUNTER → 2021-06-24 14:46 | Outpatient (BNVA) | payer MEDICAID, SELFPAY | PROVIDERS: Visit Provider Orthopaedic Surgery | DX: Z01.818 Encounter for other preprocedural examination (principal); Z20.822 Contact with and (suspected) exposure to COVID-19 | CPT/HCPCS: 87635 ==

== ENCOUNTER 2021-06-28 05:47 | Day surgery (SDC) | payer MEDICAID, SELFPAY ==
[2021-06-26 08:32] VITALS: BMI 24.5
[2021-06-26 09:06] LABS: Basophils # 0.1 10^3/uL (0.0-0.1); Basophils % 1.3 %; Eosinophils # 0.3 10^3/uL (0.0-0.8); Eosinophils % 3.8 %; Hematocrit 42.5 % (42.0-52.0); Lymphocytes # 2.6 10^3/uL (0.8-4.8); Lymphocytes % 34.6 %; Mean Corpuscular HGB Conc 32.9 g/dL (30.0-36.0); Mean Corpuscular Hemoglobin 29.4 pg (28.0-34.0); Mean Corpuscular Volume 89.3 fl (80-94); Mean Platelet Volume 10.7 fL (7.4-10.4); Monocytes # 0.7 10^3/uL (0.2-0.9); Monocytes % 9.4 %; Neutrophils # 3.78 10^3/uL (1.8-7.7); Neutrophils % 50.6 %; Nucleated Red Blood Cells % 0 %; Platelet Count 212 10^3/cmm (130-400); Red Blood Count 4.76 10^6/uL (4.1-5.3); Red Cell Distribution Width 13.8 % (12.1-15.1); White Blood Count 7.5 10^3/uL (4.0-10.0)
[2021-06-26 09:22] LABS: Anion Gap 16.6 (5-19); Blood Urea Nitrogen 11 mg/dL (8-23); Carbon Dioxide 22 mmol/L (22-29); Chloride 104 mmol/L (98-107); Glomerular Filtration Rate 98.3 mL/min (90-130); Glucose 102 mg/dL (65-115); Osmolality Calculated 286 mOsm/kg (285-295); Potassium 4.6 mmol/L (3.5-5.1); Sodium 138 mmol/L (136-145)
[2021-06-26 09:36] LABS: Slide Review Slide Review Perform
[2021-06-28] VITALS (8 sets, daily range): BP systolic 79–159; BP diastolic 46–108; PULSE 68–94; RESP 14–23; TEMP 36.1–36.6; O2SAT 96–100
--- NOTE | 2021-06-28 | XR_ITS ---
WS: [id number] Exam: XR lumbar spine 1V [id number] Date/Time of Exam: 06/28/2021 12:00 AM Reason For Exam: lumbar instrumentation Limited anterior-posterior C-arm images of the lower lumbar spine are submitted for evaluation. There are pedicle screws and posterior rods visualized from L4 to S1. A spacer is in place at the L4- 5 disc level. Surgical retractors are noted at about the level of L5-S1. No other significant finding on this limited series
--- NOTE | 2021-06-28 06:23 | P.ANESASSM_ITS ---
Pre-Anesthetic Assessment Pre-Anesthetic Assessment: Height/Weight: Height 1.78 m Weight 77.564 kg Temp Pulse Resp BP Pulse Ox 97.8 F 81 16 159/101 99 06/28/21 06:00 06/28/21 06:00 06/28/21 06:00 06/28/21 06:00 06/28/21 06:00 Preop Diagnosis: Failed Hardware Lumbar spine Proposed Procedure: Operation Date: 06/28/21 07:00 Proposed Procedures p Revision Surgery w/ Hardware Removal from L5/S1 90599 Z98.1(Not Applicable) - Patrick Sims, DO Was Beta Heladio taken within 24 hours: N/A Was Clonidine taken within 24 hours: N/A Last intake: Intake Last Liquid Date 06/27/21 Last Liquid Time 22:30 Last Solid Date 06/27/21 Last Solid Time 22:30 Social: Social History: No alcohol and No tobacco Exam: Pre-Anes Outpt Exam: alert, oriented x 3, clear to auscultation bilaterally and regular rate & rhythm Airway: Submandibular: WNL Cervical ROM: WNL MP: 1 Dentition: False Pulmonary: Pulmonary: None reported CV/HEM: CV/HEM: HTN : Comments: BPH Hepatic: Comments: Remote history of hepatic vein thrombosis GI: GI: GERD Metabolic: Metabolic: None reported Musc/skel: Musc/skel: Lower Back Pain and OA/DJD Neuropsych: Neuropsych: None reported Anesthetic Plan: ASA status: 3 PFSH Anesthesia PFSH: Medical History Cigarette smoker Colostomy in place 07/08 Diverticulitis Hernia Hypertension Surgical History H/O spinal fusion 90s Family History Denies family history of Cancer Social History Alcohol intake: current Alcohol intake frequency: 0-2 Drinks per Day Alcohol type: hard liquor Adopted: No Caregiver/support person: Yes Household members: family Housing: House Data Anesthesia CBC & Chem 7: 06/26/21 08:52 06/26/21 08:52 Other Labs: Laboratory Results - last 48 hr 06/26/21 06/26/21 08:52 08:52 WBC 7.5 RBC 4.76 Hgb 14.0 Hct 42.5 MCV 89.3 MCH 29.4 MCHC 32.9 RDW 13.8 Plt Count 212 MPV 10.7 H Neut % (Auto) 50.6 Lymph % (Auto) 34.6 [place] % (Auto) 9.4 Eos % (Auto) 3.8 Baso % (Auto) 1.3 Neut # (Auto) 3.78 Lymph # (Auto) 2.6 [place] # (Auto) 0.7 Eos # (Auto) 0.3 Baso # (Auto) 0.1 Nucleated RBC % (auto) 0 Nucleated RBCs # 0.0 Sodium 138 Potassium 4.6 Chloride 104 Carbon Dioxide 22 Anion Gap 16.6 BUN 11 Creatinine 0.8 GFR Calculation 98.3 Glucose 102 Calculated Osmolality 286 Calcium 9.0 Cardiac Studies: No Data to Display
[2021-06-28] MEDS: sodium chloride 0.9% 1,000 ML 30 ML IV (06:38)
--- NOTE | 2021-06-28 06:47 | W.PM.OPSUD ---
Surgery/Procedure H&P Update DATE OF PROCEDURE: June 28, 2021 DATE H&P PERFORMED: 06/20/21 H&P UPDATE INFORMATION: I have reviewed H&P completed within last 30 days, I have examined patient prior to procedure and No changes to prior documentation PREOP DIAGNOSIS: Failed Hardware Lumbar spine PLANNED PROCEDURE: Operation Date: 06/28/21 07:00 Proposed Procedures p Revision Surgery w/ Hardware Removal from L5/S1 37170 Z98.1(Not Applicable) - Patrick Sims DO
[2021-06-28] MEDS: clindamycin 900 MG/50 ML PREMIX 100 MG IV (07:00)
[2021-06-28] MEDS: vancomycin 1,000 MG SDV 1000 MG XX (07:44)
--- NOTE | 2021-06-28 07:58 | SCC_ITS ---
Procedure Done: removal deep hardware from spine 2.0 seconds of fluoroscopic guidance, for a cumulative dose of 0.48 mGy, was provided to Dr. Sims by the radiology department. C-arm images of the lumbar spine were saved for the patient's permanent record. [facility]
--- NOTE | 2021-06-28 08:26 | P.OP_ITS ---
Operative Report Date of procedure: June 28, 2021 Pre-op Diagnosis: Failed Hardware Lumbar spine Post-op diagnosis: same Procedure Done: removal deep hardware from spine Surgeon: Patrick Sims [place] Tier: Berry Dominguez Canadian Bacon Tier: The cardiovascular surgical tech, Berry Dominguez, BARTOLOME was needed for his expertise under the microscope. He was important and necessary throughout the procedure to complete in a safe and timely manner. He assisted with patient positioning prepping and draping tissue retraction suctioning of the operative field protection of the dural sac and tissue closure. Anesthesia: General Estimated blood loss (mL): 10 Condition: stable Disposition: PACU Procedure: removal deep hardware from spine Patient was brought to the operative suite after undergoing anesthesia patient was positioned on the bed all areas impingement well-padded. Skin incision made using bottom half of the incision. Dissection was made down to the L5 and S1 screws. The cage was identified. The microscope was brought in the cage was dissected out medially laterally superiorly inferiorly. Once the cage was felt to be adequately freed up a distractor pin was inserted into the cage. And the cage was slowly brought out. Using the microscope and neuro monitoring to ensure that the nerve was safe the entire time. Valsalva maneuver was done to ensure that there was no dural tears wound was then irrigated pink powder was placed wound was closed in layered fashion with 0 Vicryl 2-0 Vicryl and Monocryl suture. Sterile dressings were applied and patient was transferred to the PACU in stable condition.
[2021-06-28] MEDS: HYDROcodone-acetaminophen 10-325 mg Tablet 1 TAB PO (09:30)
--- NOTE | 2021-06-28 12:26 | ANE.PACU2 ---
Inpatient post-anesthesia follow up: Airway intact: Yes Vital signs: Temperature 97 F Pulse Rate 68 Respiratory Rate 18 Blood Pressure 129/86 Pulse Oximetry 100 Oxygen Delivery Me thod Room Air Oxygen Flow Rate 7 Fraction of Inspir ed Oxygen Hydration adequate: Yes Nausea and vomiting: No Pain level: 2 Mental status: Baseline
== END 2021-06-28 11:47 | disposition home or self-care (01) ==
PROVIDERS: Anesthesiology; Visit Provider Orthopaedic Surgery
PROC: (CPT 22612; principal; 2021-06-28 07:00)
DX: T84.84XA Pain due to internal orthopedic prosthetic devices, implants and grafts, initial encounter (principal); I10 Essential (primary) hypertension; N40.0 Benign prostatic hyperplasia without lower urinary tract symptoms; M19.90 Unspecified osteoarthritis, unspecified site; F17.210 Nicotine dependence, cigarettes, uncomplicated
CPT/HCPCS: 20680; 72020; 76000; 80048; 85025; J2704; J3010; J3370; J3490; J7030

== ENCOUNTER → 2021-07-02 13:20 | Outpatient (BNVA) | payer MEDICAID, SELFPAY | PROVIDERS: Visit Provider Orthopaedic Surgery | DX: Z98.890 Other specified postprocedural states (principal) | CPT/HCPCS: 72100 ==

== ENCOUNTER → 2021-08-01 14:00 | Outpatient (BNVA) | payer MEDICAID, SELFPAY | PROVIDERS: Visit Provider Physician Assistant | DX: Z47.89 Encounter for other orthopedic aftercare (principal); Z98.1 Arthrodesis status | CPT/HCPCS: 72050; 72100 ==

== ENCOUNTER → 2024-05-10 14:47 | Outpatient (BNVA) | payer MEDICARE, SELFPAY | PROVIDERS: Visit Provider Orthopaedic Surgery | DX: M50.30 Other cervical disc degeneration, unspecified cervical region (principal); Z98.1 Arthrodesis status; M54.50 Low back pain, unspecified; M54.9 Dorsalgia, unspecified | CPT/HCPCS: 72110; 99213 ==